=== PATIENT | male | born 1990 | race Caucasian/White ===

== ENCOUNTER 2021-04-15 15:32 | Emergency (ER) | payer OTHER | END 2021-04-15 16:04 | disposition left against medical advice (07) | LOC: CSHERS 15:32 | DX: Z53.21 Procedure and treatment not carried out due to patient leaving prior to being seen by health care provider (principal) ==

== ENCOUNTER 2023-03-26 14:39 | Emergency (ER) | payer OTHER, SELFPAY ==
[2023-03-26] MEDS ORDERED: HYDROcodone/Acetaminophen 5/325 mg Tablet ONE (14:54)
[2023-03-26] MEDS ORDERED: Ibuprofen 800 MG TAB ONE (14:55)
== END 2023-03-26 16:06 | disposition home or self-care (01) ==
LOC: CSHERS 14:39
DX: S92.341A Displaced fracture of fourth metatarsal bone, right foot, initial encounter for closed fracture (principal); S92.321A Displaced fracture of second metatarsal bone, right foot, initial encounter for closed fracture; S92.331A Displaced fracture of third metatarsal bone, right foot, initial encounter for closed fracture; F17.210 Nicotine dependence, cigarettes, uncomplicated; V89.2XXA Person injured in unspecified motor-vehicle accident, traffic, initial encounter
CPT/HCPCS: G0390